=== PATIENT | female | born 1985 | race African-American/Black ===

== ENCOUNTER 2016-08-05 17:57 | Emergency (ER) | payer MEDICAID ==
[~2016-08-05] VITALS: Ht 172.7 cm; Wt 185.0 kg
[~2016-08-05 17:57] MED LIST: BECL8.7A5 IH
[2016-08-05] MEDS ORDERED: ALBU8HFA4 IH (18:21)
[2016-08-05] MEDS ORDERED: ALBU8.5H IH (18:21)
[2016-08-05] MEDS ORDERED: IPRATROPIUM BROMIDE 0.5 MG/2.5 ML NEB SOLUTION NEB ONE (18:30)
[2016-08-05] MEDS ORDERED: ALBUTEROL SULFATE 2.5 MG/0.5 ML NEB SOLUTION NEB ONE (18:30)
[2016-08-05] MEDS ORDERED: 0.9% SODIUM CHLORIDE 5 ML NEB SOLUTION NEB ONE (18:32)
[2016-08-05] MEDS ORDERED: ALBUTEROL SULFATE HFA 90 MCG/PUFF 8 GM INHALER IH ONE (19:30)
[2016-08-05 19:45] VITALS: BP 130/86
[2016-08-05] MEDS ORDERED: PredniSONE 20 MG TABLET PO ONE (19:45)
== END 2016-08-05 20:08 | disposition home or self-care (01) ==
LOC: EMS 17:58
DX: J45.909 Unspecified asthma, uncomplicated (principal); Z87.891 Personal history of nicotine dependence
CPT/HCPCS: 94640; 99284; J7512; J7613; 99283; J3535

== ENCOUNTER 2019-04-06 12:28 | Emergency (ER) | payer MEDICAID ==
[~2019-04-06] VITALS: Ht 172.7 cm; Wt 95.5 kg
[~2019-04-06 12:28] MED LIST changes: +ALBU8.5H8 IH; +ALBU8HFA4 IH; -BECL8.7A5 IH
[2019-04-06] MEDS ORDERED: IPRA3AMP24 NEB (12:36)
[2019-04-06] MEDS ORDERED: BECL10.6 IH (12:36)
[2019-04-06] MEDS ORDERED: ALBUTEROL SULFATE 2.5 MG/0.5 ML NEB SOLUTION NEB ONE (12:45)
[2019-04-06] MEDS ORDERED: IPRATROPIUM BROMIDE 0.5 MG/2.5 ML NEB SOLUTION NEB ONE (12:45)
[2019-04-06] MEDS ORDERED: ALBUTEROL SULFATE HFA 90 MCG/PUFF 8 GM INHALER IH ONE (13:45)
[2019-04-06] MEDS ORDERED: DEXAMETHASONE 4 MG TABLET PO ONE (13:45)
[2019-04-06 14:00] VITALS: BP 135/89
== END 2019-04-06 14:20 | disposition home or self-care (01) ==
LOC: EMS 12:31
DX: J45.901 Unspecified asthma with (acute) exacerbation (principal); F17.210 Nicotine dependence, cigarettes, uncomplicated
CPT/HCPCS: 94640; 99284; 99406; J8540; J3535

== ENCOUNTER 2019-05-20 11:03 | Emergency (ER) | payer MEDICAID ==
[~2019-05-20] VITALS: Ht 172.7 cm; Wt 86.4 kg
[~2019-05-20 11:03] MED LIST changes: -ALBU8HFA4 IH; +BECL10.6 IH; +IPRA3AMP24 NEB
[2019-05-20] MEDS ORDERED: ALBUTEROL SULFATE 2.5 MG/0.5 ML NEB SOLUTION NEB ONE (11:15)
[2019-05-20] MEDS ORDERED: IPRATROPIUM BROMIDE 0.5 MG/2.5 ML NEB SOLUTION NEB ONE ×2 (11:15→11:30)
[2019-05-20] MEDS ORDERED: 0.9% SODIUM CHLORIDE 5 ML NEB SOLUTION NEB ONE ×2 (11:19→11:27)
[2019-05-20] MEDS ORDERED: ALBUTEROL SULFATE 5 MG/ML 20 ML NEB SOLN [BULK] NEB ONE (11:30)
[2019-05-20] MEDS ORDERED: PredniSONE 20 MG TABLET PO ONE (11:30)
[2019-05-20] MEDS ORDERED: ALBUTEROL SULFATE HFA 90 MCG/PUFF 8 GM INHALER IH ONE (11:30)
[2019-05-20 13:14] VITALS: BP 133/78
== END 2019-05-20 13:15 | disposition home or self-care (01) ==
LOC: EMS 11:05
DX: J45.901 Unspecified asthma with (acute) exacerbation (principal); F17.210 Nicotine dependence, cigarettes, uncomplicated
CPT/HCPCS: 94640; 94644; 99285; 99406; J7512; J3535

== ENCOUNTER 2019-06-26 23:31 | Emergency (ER) | payer MEDICAID ==
[~2019-06-26] VITALS: Ht 172.7 cm; Wt 93.2 kg
[2019-06-27] MEDS ORDERED: IPRATROPIUM BROMIDE 0.5 MG/2.5 ML NEB SOLUTION NEB ONE (00:15)
[2019-06-27] MEDS ORDERED: PredniSONE 20 MG TABLET PO ONE (00:15)
[2019-06-27] MEDS ORDERED: ALBUTEROL SULFATE 2.5 MG/0.5 ML NEB SOLUTION NEB ONE (00:15)
[2019-06-27] MEDS ORDERED: GuaiFENesin/D-METHORPHAN [SUGAR-FREE] 200-20MG/10 ML SYRUP UDCUP PO ONE (00:15)
[2019-06-27] MEDS ORDERED: ACETAMINOPHEN 500 MG TABLET PO ONE (00:15)
[2019-06-27] MEDS ORDERED: 0.9% SODIUM CHLORIDE 5 ML NEB SOLUTION NEB ONE (00:31)
[2019-06-27 01:03] VITALS: BP 142/84
== END 2019-06-27 01:20 | disposition home or self-care (01) ==
LOC: EMS 23:31
DX: J45.901 Unspecified asthma with (acute) exacerbation (principal); F17.290 Nicotine dependence, other tobacco product, uncomplicated; Z79.899 Other long term (current) drug therapy
CPT/HCPCS: 94640; 99284; 99406; J7512

== ENCOUNTER 2019-10-28 05:02 | Emergency (ER) | payer MEDICAID ==
[~2019-10-28] VITALS: Ht 172.7 cm; Wt 90.9 kg
[2019-10-28] MEDS ORDERED: ALBUTEROL SULFATE HFA 90 MCG/PUFF 8 GM INHALER IH ONE (05:45)
[2019-10-28 06:28] VITALS: BP 124/71
== END 2019-10-28 06:35 | disposition home or self-care (01) ==
LOC: EMS 05:03
DX: J45.901 Unspecified asthma with (acute) exacerbation (principal); F17.210 Nicotine dependence, cigarettes, uncomplicated; F12.90 Cannabis use, unspecified, uncomplicated; Z79.899 Other long term (current) drug therapy; Z90.49 Acquired absence of other specified parts of digestive tract
CPT/HCPCS: 94640; 99406; J3535

== ENCOUNTER 2020-01-12 12:10 | Emergency (ER) | payer MEDICAID ==
[~2020-01-12] VITALS: Ht 170.2 cm; Wt 118.2 kg
[2020-01-12] MEDS ORDERED: ALBUTEROL SULFATE HFA 90 MCG/PUFF 8 GM INHALER IH ONE (12:30)
[2020-01-12] MEDS ORDERED: MethylPREDNISolone SOD SUCC 125 MG/2 ML VIAL IM ONE (12:30)
[2020-01-12 13:14] VITALS: BP 135/71
== END 2020-01-12 13:16 | disposition home or self-care (01) ==
LOC: EMS 12:11
DX: J45.901 Unspecified asthma with (acute) exacerbation (principal); F17.210 Nicotine dependence, cigarettes, uncomplicated; F12.90 Cannabis use, unspecified, uncomplicated
CPT/HCPCS: 94640; 96372; 99283; J2930; J3535

== ENCOUNTER 2020-04-19 13:55 | Emergency (ER) | payer MEDICAID ==
[~2020-04-19] VITALS: Ht 170.2 cm; Wt 109.1 kg
[2020-04-19 14:04] VITALS: BP 127/77
== END 2020-04-19 15:11 | disposition home or self-care (01) ==
LOC: EMS 13:55
DX: J45.909 Unspecified asthma, uncomplicated (principal); F17.210 Nicotine dependence, cigarettes, uncomplicated; F12.90 Cannabis use, unspecified, uncomplicated; Z76.0 Encounter for issue of repeat prescription
CPT/HCPCS: Z7502

== ENCOUNTER 2020-04-27 10:46 | Emergency (ER) | payer MEDICAID ==
[~2020-04-27] VITALS: Ht 172.7 cm; Wt 109.1 kg
[2020-04-27] MEDS ORDERED: BECLOMETHASONE DIPR HFA 80 MCG/PUFF 10.6 GM INHALER IH ONE (11:00)
[2020-04-27 11:50] VITALS: BP 128/85
== END 2020-04-27 11:51 | disposition home or self-care (01) ==
LOC: EMS 10:46
DX: J45.909 Unspecified asthma, uncomplicated (principal); F12.90 Cannabis use, unspecified, uncomplicated; F17.210 Nicotine dependence, cigarettes, uncomplicated; Z90.49 Acquired absence of other specified parts of digestive tract; Z79.899 Other long term (current) drug therapy
CPT/HCPCS: 94640; J3535

== ENCOUNTER 2020-12-21 01:48 | Emergency (ER) | payer MEDICAID ==
[~2020-12-21] VITALS: Ht 172.7 cm; Wt 104.5 kg
[2020-12-21 01:54] VITALS: BP 138/79
[2020-12-21] MEDS ORDERED: ALBUTEROL SULFATE 5 MG/ML 20 ML NEB SOLN [BULK] NEB ONE (02:30)
[2020-12-21] MEDS ORDERED: ALBUTEROL SULFATE HFA 90 MCG/PUFF 8 GM INHALER IH ONE (02:30)
[2020-12-21] MEDS ORDERED: IPRATROPIUM BROMIDE 0.5 MG/2.5 ML NEB SOLUTION NEB ONE (02:30)
== END 2020-12-21 04:00 | disposition home or self-care (01) ==
LOC: EMS 01:50
DX: J45.909 Unspecified asthma, uncomplicated (principal); F17.210 Nicotine dependence, cigarettes, uncomplicated; F12.90 Cannabis use, unspecified, uncomplicated
CPT/HCPCS: 94640; 99284; J3535; Z7502

== ENCOUNTER 2021-05-08 01:04 | Emergency (ER) | payer MEDICAID ==
[~2021-05-08] VITALS: Ht 175.3 cm; Wt 90.9 kg
[2021-05-08 02:01] VITALS: BP 127/86
[2021-05-08] MEDS ORDERED: ALBUTEROL SULFATE HFA 90 MCG/PUFF 8 GM INHALER IH ONE (02:30)
== END 2021-05-08 02:45 | disposition home or self-care (01) ==
LOC: EMS 01:04
DX: J45.909 Unspecified asthma, uncomplicated (principal); F17.210 Nicotine dependence, cigarettes, uncomplicated; F12.90 Cannabis use, unspecified, uncomplicated; Z76.0 Encounter for issue of repeat prescription
CPT/HCPCS: 94640; 99283; J3535

== ENCOUNTER 2021-07-19 21:22 | Emergency (ER) | payer MEDICAID ==
[~2021-07-19] VITALS: Ht 172.7 cm; Wt 94.1 kg
[2021-07-19] MEDS ORDERED: AMPICILLIN SODIUM/SULBACTAM NA 3 GM in SODIUM CHLORIDE 0.9% 100 ML IV ONE (22:30)
[2021-07-19] MEDS ORDERED: SODIUM CHLORIDE 0.9% 1,000 ML IV ONE (22:30)
[2021-07-19] MEDS ORDERED: KETOROLAC TROMETHAMINE 30 MG/ML VIAL IVP ONE (22:30)
[2021-07-19] MEDS ORDERED: 0.9% SODIUM CHLORIDE 10 ML SYRINGE IVP PRN (22:30)
[2021-07-19 22:37] LABS: COVID AG,FIA SOURCE NASOPHARYNGEAL
[2021-07-19 22:52] LABS: BASOPHILS % (AUTO) 0.4 % (0.0-2.0); EOSINOPHILS % (AUTO) 0.4 % (1.0-6.0); HEMATOCRIT 40.1 % (36-46); HEMOGLOBIN 13.2 g/dL (12.0-16.0); LYMPHOCYTES # (AUTO) 1.4 K/uL (1.0-4.8); LYMPHOCYTES % (AUTO) 7.7 % (22.0-44.0); MEAN CORPUSCULAR HEMOGLOBIN 29.7 pg (26.0-34.0); MEAN CORPUSCULAR VOLUME 90 fL (80-100); MONOCYTES # (AUTO) 0.9 K/uL (0.1-1.0); MONOCYTES % (AUTO) 4.7 % (2.0-9.0); NEUTROPHILS # (AUTO) 15.8 K/uL (1.8-7.7); PLATELET COUNT (AUTO) 424 K/uL (150-450); RED BLOOD CELL COUNT(AUTO) 4.45 MIL/uL (4.00-5.20); RED CELL DISTRIBUTION WIDTH 13.9 % (11.5-14.5)
[2021-07-19 22:55] LABS: NEUTROPHILS % (AUTO) 86.8 % (40.0-70.0)
[2021-07-19 22:59] LABS: ANION GAP 12 mmol/L (8-16); CARBON DIOXIDE 27 mmol/L (22-29); CHLORIDE 99 mmol/L (98-107); CREATININE 0.93 mg/dL (0.60-1.30); GLOMERULAR FILTR. RATE CALC > 60 mL/min (>60); GLUCOSE,RANDOM 103 mg/dL (70-110); POTASSIUM 3.8 mmol/L (3.5-5.1); SODIUM SERUM 138 mmol/L (136-145); UREA NITROGEN, BLOOD 6 mg/dL (7-18)
[2021-07-19 23:02] LABS: PROTHROMBIN TIME 10.4 SEC (9.4-11.6)
[2021-07-19 23:08] LABS: LACTIC ACID 0.9 mmol/L (0.4-2.0)
[2021-07-19 23:12] LABS: ALANINE AMINOTRANSFERASE 26 U/L (12-78); ALBUMIN 3.7 g/dL (3.4-5.0); ALKALINE PHOSPHATASE 88 U/L (46-116); ASPARTATE AMINOTRANSFERASE 12 U/L (15-37); BILIRUBIN,TOTAL 1.2 mg/dL (0.1-1.0); HCG,QUANTITATIVE < 1 mIU/mL (0-6); TOTAL PROTEIN, SERUM 7.5 g/dL (6.4-8.2)
[2021-07-19 23:19] LABS: B-TYPE NATRIURETIC PEPTIDE 78 pg/mL (0-100)
[2021-07-20] MEDS ORDERED: DEXAMETHASONE SOD PHOS 4 MG/ML 5 ML VIAL IVP ONE (00:15)
[2021-07-20 01:18] VITALS: BP 104/87
== END 2021-07-20 03:22 | disposition short-term general hospital (02) ==
LOC: EMS 21:23
DX: K12.2 Cellulitis and abscess of mouth (principal); J45.909 Unspecified asthma, uncomplicated; F17.210 Nicotine dependence, cigarettes, uncomplicated; F12.90 Cannabis use, unspecified, uncomplicated; Z20.822 Contact with and (suspected) exposure to COVID-19
CPT/HCPCS: 36415; 80053; 83605; 83880; 84484; 84702; 85025; 85610; 87040; 87426; 96365; 96375 ×2; 99291; J0295; J1100; J1885; J7030; J7050

== ENCOUNTER 2022-05-14 02:39 | Emergency (ER) | payer MEDICAID ==
[~2022-05-14] VITALS: Ht 172.7 cm; Wt 94.1 kg
[2022-05-14] MEDS ORDERED: ALBUTEROL SULFATE HFA 90 MCG/PUFF 8 GM INHALER IH ONE (02:45)
[2022-05-14] MEDS ORDERED: ALBUTEROL SULFATE 2.5 MG/0.5 ML NEB SOLUTION NEB ONE (02:45)
[2022-05-14] MEDS ORDERED: IPRATROPIUM BROMIDE 0.5 MG/2.5 ML NEB SOLUTION NEB ONE (02:45)
[2022-05-14 03:34] LABS: COVID AG,FIA SOURCE NASAL SWAB
[2022-05-14 04:01] VITALS: BP 157/87
== END 2022-05-14 04:27 | disposition home or self-care (01) ==
LOC: EMS 02:40
DX: J45.901 Unspecified asthma with (acute) exacerbation (principal); Z20.822 Contact with and (suspected) exposure to COVID-19; F10.20 Alcohol dependence, uncomplicated; F12.90 Cannabis use, unspecified, uncomplicated; F17.210 Nicotine dependence, cigarettes, uncomplicated; Z90.89 Acquired absence of other organs
CPT/HCPCS: 94060; 94640; 99285; J3535; J7613; Z7502

== ENCOUNTER 2022-06-25 03:58 | Emergency (ER) | payer MEDICAID ==
[~2022-06-25] VITALS: Ht 170.2 cm; Wt 100.0 kg
[2022-06-25] MEDS ORDERED: PENICILLIN G BENZATHINE LA 2,400,000 UNITS/4 ML SYRINGE IM ONE (04:30)
[2022-06-25 05:30] VITALS: BP 139/92
[2022-06-26 08:06] LABS: HIV 1-2 SCREEN 4TH GEN W/RFLX Non Reactive (Non Reactive)
== END 2022-06-25 05:49 | disposition home or self-care (01) ==
LOC: EMS 04:03
DX: A51.49 Other secondary syphilitic conditions (principal); J45.909 Unspecified asthma, uncomplicated; F17.210 Nicotine dependence, cigarettes, uncomplicated; F12.90 Cannabis use, unspecified, uncomplicated; Z90.49 Acquired absence of other specified parts of digestive tract
CPT/HCPCS: 99283; 86780; 86592; 86593; 84702; 36415; 96372; 87389; J0561

== ENCOUNTER 2022-09-02 04:40 | Emergency (ER) | payer MEDICAID ==
[~2022-09-02] VITALS: Ht 170.2 cm; Wt 122.7 kg
[2022-09-02 04:42] VITALS: BP 155/92
== END 2022-09-02 05:46 | disposition home or self-care (01) ==
LOC: EMS 04:42
DX: B86 Scabies (principal); J45.909 Unspecified asthma, uncomplicated; F17.210 Nicotine dependence, cigarettes, uncomplicated; F12.90 Cannabis use, unspecified, uncomplicated; Z90.49 Acquired absence of other specified parts of digestive tract
CPT/HCPCS: 99282; Z7502

== ENCOUNTER 2022-12-31 06:56 | Emergency (ER) | payer MEDICAID ==
[~2022-12-31] VITALS: Ht 170.2 cm; Wt 122.7 kg
[2022-12-31 06:58] VITALS: BP 147/91; PULSE 95; RESP 16; TEMP 98.6
[2022-12-31] MEDS ORDERED: METR500 PO (07:22)
[2022-12-31] MEDS ORDERED: FLUC150T61 PO (07:23)
[2022-12-31] MEDS ORDERED: LIDOCAINE/PF 1% 2 ML VIAL IM ONE (07:30)
[2022-12-31] MEDS ORDERED: AZITHROMYCIN 500 MG TABLET PO ONE (07:30)
[2022-12-31] MEDS ORDERED: CefTRIAXone SODIUM 1 GM/VIAL IM ONE (07:30)
== END 2022-12-31 08:05 | disposition home or self-care (01) ==
LOC: EMS 06:57
DX: N76.0 Acute vaginitis (principal); N34.2 Other urethritis; J45.909 Unspecified asthma, uncomplicated; F17.210 Nicotine dependence, cigarettes, uncomplicated; F12.90 Cannabis use, unspecified, uncomplicated; Z90.49 Acquired absence of other specified parts of digestive tract
CPT/HCPCS: 99283; 96372; J0696; J3490; Q9967